=== PATIENT | male | born 1970 | race Caucasian/White ===

== ENCOUNTER 2016-10-24 09:16 | Emergency (ER) | payer MEDICARE, OTHER ==
[2016-10-24] MEDS ORDERED: Vancomycin(*) 1,000 MG in NS 0.9% 250 ML* 250 ML IVPB ONE (12:57)
[2016-10-24] MEDS ORDERED: Cefepime(*) 2 GM in NS 0.9% 50 ML* 50 ML IVPB ONE (12:57)
[2016-10-24] MEDS ORDERED: Morphine INJ* 4 MG/ML 1 ML SYRINGE IV ONE (13:00)
[2016-10-24] MEDS ORDERED: metroNIDAZOLE IV 500 MG/100ML* 500 MG/100 ML BAG IVPB ONE (13:00)
[2016-10-24] MEDS: NS 0.9% 1000 ML* 2,000 ML IV ONE (13:39)
[2016-10-24 13:40] LABS: Hematocrit 44 % (42-52); Hemoglobin 14.5 g/dl (14.0-18.0); Mean Corpuscular HGB Conc 33 g/dl (31-36); Mean Corpuscular Hemoglobin 28 pg (27-31); Mean Corpuscular Volume 83 fL (80-94); Mean Platelet Volume 8 um3 (7.4-10.4); Red Blood Count 5.27 10^6/ul (4.0-5.4); Red Cell Distribution Width 14 % (10.5-15); White Blood Count 7.6 10^3/ul (3.5-10.8)
[2016-10-24 13:53] LABS: Albumin 4.1 g/dL (3.2-5.2); BUN/Creatinine Ratio 24.4 (8-20); Calcium 9.4 mg/dL (8.6-10.3); EGFR African American 129.5 (>60); EGFR Non-African American 100.7 (>60); Globulin 3.4 g/dL (2-4); Total Bilirubin 0.4 mg/dL (0.2-1.0); Total Protein 7.5 g/dL (6.4-8.9)
[2016-10-24] MEDS ORDERED: Vancomycin(*) 1,000 MG ADVAN IVPB ONE (14:42)
[2016-10-24 16:37] VITALS: BP 125/71
--- NOTE | 2016-10-24 18:04 | ED ---
Pradeep Mchugh Auryana, scribed for Gino Ko MD on 10/24/16 at 1456 . Lower Extremity - HPI Summary HPI Summary: 46 year old male presents with increased cellulitis, pain, and discoloration since visit to wound clinic in [place], [place] 10/16/16. He was admitted and treated with Cephazolin. He reports that there is an increased odor-few weeks ago, green color, and increased drainage. He denies trouble breathing, and any recent trauma to the area. He reports that it becomes more discolored with processed sugars- typically avoids them. Dr. Mchugh is his PCP - seen 3 weeks ago- patient states that he look at wound but did not closely exam it. 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 Patient is currently on warfarin. He drinks alcohol occasionally but denies any tobacco use. - History of Current Complaint Chief Complaint: EDExtremityLower Stated Complaint: LT LEG PAIN,POSSIBLE INFECTION Time Seen by Provider: 10/24/16 12:40 Hx Obtained From: Patient Onset of Pain: Immediate Severity Initially: Mild Severity Currently: None Pain Intensity: 0 Pain Scale Used: 0-10 Numeric Timing: Constant Location: Is Discrete @ - left calf Associated Signs And Symptoms: Positive: Swelling, Other - increased discoloration, cellulitis Aggravating Factor(s): Movement Able to Bear Weight: Yes Related History: Other - no known trauma - Allergies/Home Medications Allergies/Adverse Reactions: Allergies Allergy/AdvReac Type Severity Reaction Status Date / Time Aspirin Allergy Severe Anaphylatic Verified 02/21/16 17:44 Shock Home Medications: Home Medications Warfarin TAB(*) [Coumadin TAB(*)] 5 mg PO DAILY 10/24/16 [History Confirmed 05/31] PMH/Surg Hx/FS Hx/Imm Hx Endocrine/Hematology History: Reports: Hx Anticoagulant Therapy Cardiovascular History: Reports: Hx Deep Vein Thrombosis Infectious Disease History: Yes Infectious Disease History: Denies: Traveled Outside the [place] in Last 30 Days - Family History Known Family History: Positive: Cardiac Disease, Hypertension - Social History Occupation: Unemployed Lives: Alone Alcohol Use: None Substance Use Type: Reports: None Smoking Status (MU): Never Smoked Tobacco Review of Systems Constitutional: Negative Negative: Fever Eyes: Negative ENT: Negative Cardiovascular: Negative Respiratory: Negative Negative: Shortness Of Breath Gastrointestinal: Negative Genitourinary: Negative Positive: Myalgia - at the left calf , Edema Positive: Other - increased odor and discoloration, inreased drainage from wound Neurological: Negative Psychological: Normal All Other Systems Reviewed And Are Negative: Yes Physical Exam - Summary Physical Exam Summary: The patient is well-nourished in no acute distress and in no acute pain. The skin is warm and dry and skin color reflects adequate perfusion. Well hydrated and good skin turgor. Wound/ulcer on the left anterior leg- 2 open areas exposed through the skin to the muscle, no pus drainage, foul smelling, no granulation tissue HEENT: The head is normocephalic and atraumatic. The pupils are equal and reactive. The conjunctivae are clear and without drainage. Nares are patent and without drainage. Mouth reveals moist mucous membranes and the throat is without erythema and exudate. The external ears are intact. The ear canals are patent and without drainage. The tympanic membranes are intact. Neck is supple with full range of motion and non-tender. There are no carotid bruits. There is no neck vein distension. Respiratory: Chest is non-tender. Lungs are clear to auscultation and breath sounds are symmetrical and equal. Cardiovascular: Hear is regular rate and rhythm. There is no murmur or rub auscultated. There is no peripheral edema and pulses are symmetrical and equal. Abdomen: The abdomen is soft and non-tender. There are normal bowel sounds heard in all four quadrants and there is no organomegaly palpated. Musculoskeletal: There is no back pain noted. There is good capillary refill. There is no calf tenderness elicited. Full ROM and sensation at the left anterior leg-mild pain. Good pulses Neurological: Patient is alert and oriented to person, place and time. The patient has symmetrical motor strength in all four extremities. Cranial nerves are grossly intact. Deep tendon reflexes are symmetrical and equal in all four extremities. Psychiatric: The patient has an appropriate affect and does not exhibit any anxiety or depression. Triage Information Reviewed: Yes Vital Signs On Initial Exam: Initial Vitals Temp Pulse Resp BP Pulse Ox 99.0 F 64 18 133/74 98 10/24/16 09:18 10/24/16 09:18 10/24/16 09:18 10/24/16 09:18 10/24/16 09:18 Vital Signs Reviewed: Yes - Jaspreet Coma Scale Coma Scale Total: 15 Diagnostics - Vital Signs Vital Signs Temp Pulse Resp BP Pulse Ox 10/24/16 12:29 58 121/81 95 10/24/16 12:16 98 F 52 20 140/84 96 10/24/16 10:59 99.1 F 71 16 122/73 97 10/24/16 09:18 99.0 F 64 18 133/74 98 - Laboratory Lab Results: Lab Results 10/24/16 10/24/16 10/24/16 Range/Units 13:30 13:30 13:30 WBC 7.6 (3.5-10.8) 10^3/ul RBC 5.27 (4.0-5.4) 10^6/ul Hgb 14.5 (14.0-18.0) g/dl Hct 44 (42-52) % MCV 83 (80-94) fL MCH 28 (27-31) pg MCHC 33 (31-36) g/dl RDW 14 (10.5-15) % Plt Count 224 (150-450) 10^3/ul MPV 8 (7.4-10.4) um3 Neut % (Auto) 65.4 (38-83) % Lymph % (Auto) 25.4 (25-47) % [place] % (Auto) 6.8 (1-9) % Eos % (Auto) 1.8 (0-6) % Baso % (Auto) 0.6 (0-2) % Absolute Neuts (auto) 5.0 (1.5-7.7) 10^3/ul Absolute Lymphs (auto) 1.9 (1.0-4.8) 10^3/ul Absolute Monos (auto) 0.5 (0-0.8) 10^3/ul Absolute Eos (auto) 0.1 (0-0.6) 10^3/ul Absolute Basos (auto) 0 (0-0.2) 10^3/ul Absolute Nucleated RBC 0.02 10^3/ul Nucleated RBC % 0.2 INR (Anticoag Therapy) 1.17 H (0.89-1.11) APTT 28.6 (26.0-36.3) seconds Sodium 136 (133-145) mmol/L Potassium 4.0 (3.5-5.0) mmol/L Chloride 100 L (101-111) mmol/L Carbon Dioxide 29 (22-32) mmol/L Anion Gap 7 (2-11) mmol/L BUN 20 (6-24) mg/dL Creatinine 0.82 (0.67-1.17) mg/dL Est GFR ( Amer) 129.5 (>60) Est GFR (Non-Af Amer) 100.7 (>60) BUN/Creatinine Ratio 24.4 H (8-20) Glucose 114 H (70-100) mg/dL Lactic Acid (0.5-2.0) mmol/L Calcium 9.4 (8.6-10.3) mg/dL Total Bilirubin 0.40 (0.2-1.0) mg/dL AST 17 (13-39) U/L ALT 18 (7-52) U/L Alkaline Phosphatase 64 (34-104) U/L Total Protein 7.5 (6.4-8.9) g/dL Albumin 4.1 (3.2-5.2) g/dL Globulin 3.4 (2-4) g/dL Albumin/Globulin Ratio 1.2 (1-3) /05/31 Range/Units 13:30 WBC (3.5-10.8) 10^3/ul RBC (4.0-5.4) 10^6/ul Hgb (14.0-18.0) g/dl Hct (42-52) % MCV (80-94) fL MCH (27-31) pg MCHC (31-36) g/dl RDW (10.5-15) % Plt Count (150-450) 10^3/ul MPV (7.4-10.4) um3 Neut % (Auto) (38-83) % Lymph % (Auto) (25-47) % [place] % (Auto) (1-9) % Eos % (Auto) (0-6) % Baso % (Auto) (0-2) % Absolute Neuts (auto) (1.5-7.7) 10^3/ul Absolute Lymphs (auto) (1.0-4.8) 10^3/ul Absolute Monos (auto) (0-0.8) 10^3/ul Absolute Eos (auto) (0-0.6) 10^3/ul Absolute Basos (auto) (0-0.2) 10^3/ul Absolute Nucleated RBC 10^3/ul Nucleated RBC % INR (Anticoag Therapy) (0.89-1.11) APTT (26.0-36.3) seconds Sodium (133-145) mmol/L Potassium (3.5-5.0) mmol/L Chloride (101-111) mmol/L Carbon Dioxide (22-32) mmol/L Anion Gap (2-11) mmol/L BUN (6-24) mg/dL Creatinine (0.67-1.17) mg/dL Est GFR ( Amer) (>60) Est GFR (Non-Af Amer) (>60) BUN/Creatinine Ratio (8-20) Glucose (70-100) mg/dL Lactic Acid 0.6 (0.5-2.0) mmol/L Calcium (8.6-10.3) mg/dL Total Bilirubin (0.2-1.0) mg/dL AST (13-39) U/L ALT (7-52) U/L Alkaline Phosphatase (34-104) U/L Total Protein (6.4-8.9) g/dL Albumin (3.2-5.2) g/dL Globulin (2-4) g/dL Albumin/Globulin Ratio (1-3) Result Diagrams: 10/24/16 13:30 10/24/16 13:30 Lab Statement: Any lab studies that have been ordered have been reviewed, and results considered in the medical decision making process. - EKG 12:27 EKG Interpretation: bradycardia, early repolarization Re-Evaluation - Re-Evaluation First Eval Re-Evaluation Time: 14:56 - discussed labs and plan of action Second Eval Re-Evaluation Time: 16:11 - patient agrees with discharge plan Lower Extremity Course/Dx - Course Assessment/Plan: 46 year old male presents with increased cellulitis, pain, and discoloration since visit to wound clinic in [place], [place] 10/16/16. He was admitted and treated with Cephazolin. He reports that there is an increased odor -few weeks ago, green color, and increased drainage. He denies trouble breathing , and any recent trauma to the area. He reports that it becomes more discolored with processed sugars- typically avoids them. PMHx is significant for admission for wound treatment - left about 1.5 months ago (present for 3.5 years with intermittent healing) and DVT (2003) without arterial occlusion; unsure if (+) for HLD. Patient is currently on warfarin. Negative MRSA swab. LABS: elevated INR. EKG: early repolarization with bradycardia. Consult to Dr. Alva ( surgery) - will see patient in ED- believes he is stabe to be discharged. Will discharge patient home wit pain medication, clindamycin (300 mg 4x day), and follow up with the wound clinic. DX: infected left leg - cellulitis v.s. ulcer - Diagnoses Differential Diagnosis/HQI/PQRI: Positive: Cellulitis, Other - ulcer, abscess Provider Diagnoses: Cellulitis, Ulcer of lower limb - Physician Notifications Discussed Care of Patient With: Dr. Alva Time Discussed With Above Provider: 15:22 - will see patient in ED Instructed by Provider To: MD Will See In ED Discharge - Discharge Plan Condition: Stable Disposition: HOME Prescriptions: Clindamycin Cap(NF) [Cleocin 300 mg Cap(NF)] 300 mg PO Q6H #28 cap HYDROcodone/ACETAMIN 5-325 MG* [[place] 5-325 TAB*] 1 tab PO Q6H PRN #20 tab MDD 4 PRN Reason: pain Patient Education Materials: Chronic Wound Care (ED), Cellulitis (ED), Narcotic Pain Management (ED) Referrals: Jennifer Alva MD [Medical Doctor] - 3 Days The documentation as recorded by the Pradeep baer Auryana accurately reflects the service I personally performed and the decisions made by , Gino Ko MD.
--- NOTE | 2016-10-24 19:34 | CONS ---
CONSULTATION REPORT: DATE OF CONSULT: 10/24/16 CONSULTED TO: Dr. Jennifer Alva. CHIEF COMPLAINT: Left lower leg sore and history of DVT. HISTORY OF PRESENT ILLNESS: Mr. Espinal is a pleasant 46-year-old gentleman who presented to the [facility] earlier today with complaints of worsening left lower leg sore and tenderness. The patie nt has had a longstanding history of painful ulcers on the left leg that began approximately 3 to 4 years ago. The patient has a history of DVT in the left lower extremity back in 2003 for no obvious reason back then. He was started on Xarelto and then, currently he is on Coumadin for prophylaxis. He reports that he moved to the [facility] last January. Before that, he used to live in [facility]. He was seen there by his primary care physician, he could not remember his name, he report s he was in Unna boots intermittently for the same issue. He notes that for the past few days there were 2 open areas in the left lower leg that appear to be more tender on palpation. He denies any bleeding or discharge from the leg sores. He denies any fever or chills. Also, he reports history of cellulitis related to the same condition in the past. He presented to the emergency room. He prince d laboratory workup done that revealed normal white count of 7600. Despite the fact he has been on 5 mg of Coumadin on a daily basis, his INR currently is subtherapeutic with a level of 1.17. His ch emistry was essentially within normal limits and glucose of 114 and he denies any history of diabete s or diabetic-related symptoms. We were asked to see the patient for further evaluation of his superintendent olayinka ulcers. PAST MEDICAL HISTORY: Essentially unremarkable except for a history of DVT back in 2003 to the left lower extremity for which the patient has been maintained on Coumadin. He denies any history of he art, liver, lung, or kidney disease. PAST SURGICAL HISTORY: Significant for removal of benign skin lesion from his lower back. Otherwis e, no significant surgeries in the past. CURRENT MEDICATIONS: His only regular medication at home is Coumadin 5 mg p.o. daily. ALLERGIES: He is allergic to ASPIRIN. FAMILY HISTORY: Noncontributory. SOCIAL HISTORY: The patient is a nonsmoker who drinks alcohol occasionally and caffeine intake is m inimal. He is single, lives in [facility], currently unemployed, and actually reports not maintain ing a regular job in the last few years. REVIEW OF SYSTEMS: See HPI. Otherwise negative. He denies any fever, chills, night sweats, or rec ent weight loss. No headache, dizziness, blurred vision, or syncope. No chest pain, shortness of b reath, wheezes, or dyspnea. Denies abdominal pain, nausea, or vomiting, but only reports occasional episodes of constipation for which he has been increasing his daily water and fiber intake. Denies flank pain, dysuria, hematuria, or urinary frequency. He admits to chronic ulcers in the left lower extremity for the past 3 to 4 years with occasional increased tenderness and prior history of cellu litis requiring antibiotic treatment in the past; however, he denies any history of diabetes or pare sthesia. PHYSICAL EXAMINATION: General: He is a pleasant, middle-aged gentleman, appears healthy and in no acute distress or discomfort at the time of consultation. Vitals: His most recent set of vitals rev ealed a blood pressure of 113/77, pulse of 60, temperature of 98, and respirations of 16 with O2 sat of 97% on room air. HEENT: Sclerae anicteric. PERRLA. EOMs intact. Oropharynx is pink and moist with no exudate. Neck: Supple. Trachea midline. No cervical adenopathy, thyromegaly, or JVD. L ungs: Clear to auscultation bilaterally. Heart: Regular rate and rhythm. Normal S1 and S2 withou t rubs, murmurs, or gallops. Back with normal curvature. No CVA tenderness. Abdomen: Soft, nonte nder, nondistended. No hernias, masses, or hepatosplenomegaly. Extremities without cyanosis, clubb ing, or edema. Left lower extremity noted to have a large area of increased pigmentation surroundin g the entire medial anterior and lateral aspect of the lower leg from just above the ankle to mid ti bial region. Findings consistent with increased pigmentation and thickening of the skin probably co nsistent with chronic venous stasis ulcers. There are also 2 open areas on the anteromedial aspect of the mid leg approximately 2 to 3 cm each. They were very minimally tender on palpation with no b leeding or discharge noted. There is no erythema, induration, or warmth on touch. Pedal pulse was felt bilaterally. Neurologic: Grossly intact. Rectal Exam: Deferred at this time. LABORATORY WORKUP: CBC with white count of 7600, hemoglobin of 14.5, hematocrit of 44, and platelet s of 224. His chemistry with sodium of 136, potassium of 4.0, chloride 100, CO2 of 29, BUN 20, crea tinine of 0.8. His glucose was 114. LFTs, amylase and lipase were essentially within normal limits . His INR was 1.17. IMPRESSION: A 46-year-old male with longstanding history of left lower extremity chronic venous sta sis ulcer, presents to the emergency room today with increased tenderness to his chronic wounds. PLAN: We discussed with the patient the findings of his physical exam today. The patient was seen i n the emergency room by myself as well as Dr. Alva. He appears to have longstanding chronic venou s stasis ulcer involving his left lower extremity. He was assured there was no calf tenderness note d today and no evidence of any DVT developing. The patient was advised to follow up as an outpatien t with the wound care clinic for possible Unna boot placement or debridement as needed. We do not th ink he has any active infection or cellulitis at this point; however, the case was also discussed wi th the emergency room provider who will probably obtain a medical consult for further evaluation. T he patient understands and he was advised to follow up with the wound clinic as outlined. NOHEMY THRASHER [id number]/[facility] #: [id number]
--- NOTE | 2016-10-27 10:02 | ED ---
Progress - Progress Note Progress Note: Pt's wound cx is (-) for staph, MRSA however is (+) for e. coli - he was started on clindamycin however this does not appear to be effective. Spoke w/ pt who has not f/u'd yet w/ Dr. lAva, but agrees to call today to schedule appt as directed. Will stop clindamycin and start cipro - e-rx'ing to [facility]. Pt agrees w/ plan. Will fwd results to Dr. Alva. rojas Finnegan , aware. Re-Evaluation - Re-Evaluation First Eval Re-Evaluation Time: 14:56 - discussed labs and plan of action Second Eval Re-Evaluation Time: 16:11 - patient agrees with discharge plan Course/Dx - Diagnoses Provider Diagnoses: Cellulitis, Ulcer of lower limb - Provider Notifications Discussed Care Of Patient With: Dr. Alva Time Discussed With Above Provider: 15:22 - will see patient in ED Instructed by Provider To: MD Will See In ED
== END 2016-10-24 17:13 | disposition home or self-care (01) ==
LOC: ED 09:16
DX: L97.909 Non-pressure chronic ulcer of unspecified part of unspecified lower leg with unspecified severity (principal); L03.90 Cellulitis, unspecified; M79.662 Pain in left lower leg; R60.0 Localized edema
CPT/HCPCS: 36415; 80053; 83605; 85025; 85610; 85730; 87040; 87070; 87077; 87186; 87205; 87640; 87641; 93005; 96374; 99285; J0692; J2270; J3370